=== PATIENT | female | born 1940 | race Caucasian/White ===

== ENCOUNTER → 2016-08-01 | Outpatient (CLI) | payer OTHER ==
[~2016-08-01] MED LIST: ASPIRIN325 MG PO; FISH OIL PO; IMIPRAMINE HCL50 MG PO; INDERAL LA160 MG PO; REQUIP0.5 MG PO; SIMVASTATIN40 M1 G-TUBE; TYLENOL WITH C1 EACH PO; XANAX0.25 MG PO; XANAX0.5 MG PO; ZOCOR40 MG PO; [UNRECOGNIZED DRUG - OTHER] PO
== END | disposition home or self-care (01) ==
LOC: CDC
DX: I51.7 Cardiomegaly (principal); R94.31 Abnormal electrocardiogram [ECG] [EKG]; S82.851A Displaced trimalleolar fracture of right lower leg, initial encounter for closed fracture
CPT/HCPCS: 93000

== ENCOUNTER 2016-08-06 12:59 | Day surgery (SDC) | payer OTHER ==
[~2016-08-06] VITALS: Ht 165.1 cm; Wt 58.8 kg
[2016-08-06 13:29] VITALS: BP 176/81
[2016-08-06 20:41] VITALS: BP 198/96
[2016-08-07 00:22] VITALS: BP 144/65
[2016-08-07 04:15] VITALS: BP 130/60
[2016-08-07 07:53] VITALS: BP 136/79
[2016-08-07] MEDS ORDERED: ACETAMINOPHEN-1 EAC1 PO (10:00)
[2016-08-07 11:33] VITALS: BP 135/78
== END 2016-08-07 14:50 | disposition home or self-care (01) ==
LOC: SDC 12:59 → 2SOUTH 17:35 → 3EAST 17:35
DX: S82.851A Displaced trimalleolar fracture of right lower leg, initial encounter for closed fracture (principal); S93.421A Sprain of deltoid ligament of right ankle, initial encounter
CPT/HCPCS: 73600; 76000; 94799; C1713; G0378; G8978 GP CM; G8979 CJ; G8987 GO CM; G8988 GO CK; J0360; J0690; J1170; J2795; J3010; J7120; S0020

== ENCOUNTER 2016-12-18 09:39 | Observation (INO) | payer OTHER ==
[~2016-12-18] VITALS: Ht 165.1 cm; Wt 50.6 kg
[~2016-12-18 09:39] MED LIST changes: +ACETAMINOPHEN-1 EAC1 PO
[2016-12-18 12:31] LABS: MCH 26.3 PG (29.0-34.0); MCHC 30.5 G/DL (30.0-36.0); MCV 86.3 FL (83-99); MEAN PLAT.VOLUME 10.3 uM^3 (9.5-12.4); PLATELET COUNT 179 K/uL (156-360); RBC DIS.WIDTH-CV 16.3 % (11.8-14.6); RBC DIS.WIDTH-SD 51.2 % (39-53); RED BLOOD COUNT 4.75 M/uL (3.80-5.20); WHITE BLOOD COUNT 5.5 K/uL (4.1-10.2)
[2016-12-18 13:01] LABS: ALKALINE PHOSPHATASE 91 IU/L (3-129); ANION GAP 8 MEQ/L (2-14); CHLORIDE 112 MEQ/L (99-109); GFR ESTIMATE (CALCULATED) 51 mL/min/; GLUCOSE 70 mg/dL (70-99); SAMPLE HEMOLYSIS CHECK 0; SAMPLE ICTERIC CHECK 0; SAMPLE LIPEMIA CHECK 0; SODIUM 143 MEQ/L (136-147); TOTAL BILIRUBIN 0.4 MG/DL (0.0-1.0); UREA NITROGEN (BUN) 19 mg/dL (9-23)
[2016-12-18] MEDS ORDERED: MACULAR HEALTH1 EAC1 PO (15:32)
[2016-12-18] MEDS ORDERED: FISH OIL 1,0001 EAC7 PO (15:33)
[2016-12-18] MEDS ORDERED: TYLENOL EXTRA500 MG PO (15:35)
[2016-12-18] MEDS ORDERED: ARTIFICIAL TEAR15 M1 BOTH EYES (15:36)
[2016-12-18 16:00] LABS: TROP-I INTERPRETATION NEGATIVE; TROPONIN-I 0.01 ng/mL (0.0-0.30)
[2016-12-18 20:12] VITALS: BP 195/87
[2016-12-18 21:34] VITALS: BP 174/110
[2016-12-18 21:58] LABS: TROP-I INTERPRETATION NEGATIVE; TROPONIN-I 0.03 ng/mL (0.0-0.30)
[2016-12-18 22:13] VITALS: BP 137/97
[2016-12-18 23:05] VITALS: BP 188/88
[2016-12-19] VITALS (7 sets, daily range): BP systolic 118–201; BP diastolic 62–109
[2016-12-19] MEDS ORDERED: LISINOPRIL10 MG PO (12:11)
[2016-12-19] MEDS ORDERED: AMLODIPINE BESYL5 MG PO (16:02)
== END 2016-12-19 16:33 | disposition home or self-care (01) ==
LOC: SDC 09:39 → EME 09:39 → SDC 10:43 → EDSTATUS 13:32 → EDOF 15:07 → 5WEST 15:07 → EDOF 15:07 → CANRESERV 15:16 → ENRESERV 15:16 → SDC 16:12 → ENRESERV 18:23 → 5WEST 19:54
PROVIDERS: Nurse Practitioner Family; Orthopaedic Surgery
PROC: 0QJYXZZ Inspection of Lower Bone, External Approach (ICD-10-PCS; principal; 2016-12-18)
DX: I16.0 Hypertensive urgency (principal); I10 Essential (primary) hypertension; F17.210 Nicotine dependence, cigarettes, uncomplicated; T81.89XA Other complications of procedures, not elsewhere classified, initial encounter; K21.9 Gastro-esophageal reflux disease without esophagitis; F32.9 Major depressive disorder, single episode, unspecified; Z53.09 Procedure and treatment not carried out because of other contraindication; Z86.73 Personal history of transient ischemic attack (TIA), and cerebral infarction without residual deficits; H35.30 Unspecified macular degeneration; J44.9 Chronic obstructive pulmonary disease, unspecified; I34.0 Nonrheumatic mitral (valve) insufficiency; G25.81 Restless legs syndrome; G25.0 Essential tremor; Z79.82 Long term (current) use of aspirin; Z82.49 Family history of ischemic heart disease and other diseases of the circulatory system; Z91.09 Other allergy status, other than to drugs and biological substances; Z88.8 Allergy status to other drugs, medicaments and biological substances
CPT/HCPCS: 71010; 80053; 84484; 85027; 99281; 99285; A6260; G0378; J0360; J0690; J1650; J7120